=== PATIENT | female | born 1970 | race Caucasian/White ===

== ENCOUNTER 2022-05-09 08:31 | Outpatient (REF) | payer OTHER, SELFPAY ==
--- NOTE | ~2022-05-09 | XR_ITS ---
EXAMINATION: XR WRIST, RIGHT CLINICAL INFORMATION: Right wrist pain. COMPARISON: None available. TECHNIQUE: PA, lateral, and oblique views of the right wrist. FINDINGS: A tiny linear density is seen along the ulnar base of the fifth metacarpal. The remainder of the visualized digits are intact. The carpal bones are normally aligned. The distal radius and ulna are intact. The soft tissues are unremarkable. XR/XR wrist RT min 3V IMPRESSION: Tiny linear density along the ulnar base of the fifth metacarpal is nonspecific, but does not appear acute and could be degenerative in nature or secondary to old avulsion type fracture. Correlate with physical exam and trauma history.
== END 2022-05-09 08:32 | disposition home or self-care (01) ==
LOC: HO.HMGCX 08:31
PROVIDERS: PCP Internal Medicine; Visit Provider Internal Medicine
DX: S63.501A Unspecified sprain of right wrist, initial encounter (principal)
CPT/HCPCS: 73110